=== PATIENT | female | born 1990 | race Caucasian/White ===

== ENCOUNTER 2019-06-27 15:26 | Emergency (ER) | payer MEDICAID, SELFPAY ==
[2019-06-27 15:28] VITALS: BP 119/72; PULSE 88; RESP 16; TEMP 37; O2SAT 97; BMI 23.7
--- NOTE | 2019-06-27 16:30 | ED.VISSUMM ---
- ER Visit Summary Date of Service: 06/27/19 Chief Complaint: Sore throat History of Present Illness: The patient is a 28 F who presents with a sore throat that has been getting worse over the past 3 days. Patient describes her pain as burning. Patient states the pain is worse with swallowing. Patient admits to a slight cough. Patient is a smoker. Patient also admits to some loose stools. Patient denies any nausea or vomiting. Patient denies any rhinorrhea. Patient denies any fevers or chills. Physical Examination: Vital signs are stable. Patient is afebrile. Patient is in no acute distress. Oral mucosa is pink and moist. Oropharynx is erythematous. There are exudates on the tonsils bilaterally. Neck is supple. Trachea is midline. There is tender anterior cervical lymphadenopathy. Heart was regular rate and rhythm. Lungs are clear and equal bilaterally. Test Results: Rapid strep was obtained and was negative. Emergency Department Course and Treatment: Patient was advised that this is most likely a viral pharyngitis. Patient was instructed to continue Tylenol and ibuprofen as needed for pain. Patient was instructed to follow-up with her primary care physician in 5 to 7 days. Patient understood and was agreeable with the plan. All questions were answered. Disposition: Discharge home Impression: Viral pharyngitis This note was generated with [employer] dictation software. It may contain incorrect words, spelling, and punctuation that were not noted in review of the chart prior to signing ED Disposition - Plan for ED Patient: Disposition: Home or Assisted Living Diagnosis: Viral pharyngitis Instructions: PHARYNGITIS, Viral Referrals: Care Physician,No Primary [Primary Care Provider] - Juan Carlos Paula MD [NON-STAFF] - 5-7 Days
--- NOTE | 2019-06-27 18:37 | ED.RN ---
THIS RN TO ROOM TO DISCHARGE PATIENT, PATIENT LEFT DEPARTMENT PRIOR TO DISCHARGE.
== END 2019-06-27 18:37 | disposition home or self-care (01) ==
PROVIDERS: Emergency Provider Emergency Medicine
DX: J02.8 Acute pharyngitis due to other specified organisms (principal); F17.200 Nicotine dependence, unspecified, uncomplicated
CPT/HCPCS: 87880; 99282